=== PATIENT | female | born 1990 | race Caucasian/White ===

== ENCOUNTER 2017-10-26 16:25 | Emergency (ER) | payer OTHER ==
[~2017-10-26] VITALS: Ht 162.6 cm; Wt 75.0 kg
[~2017-10-26 16:25] MED LIST: CEPH500C3 PO
--- NOTE | 2017-10-26 16:53 | PD ---
HPI Chief Complaint: Cardiac Complaint Time Seen by Provider: 16:53 Travel History International Travel<30 days: No Contact w/Intl Traveler<30days: No Traveled to known affect area: No History of Present Illness HPI 27-year-old female came to the emergency room with vague complains of dizziness , feeling weird and cough for past 1-2 months. Patient has not been able to describe her symptoms very well but continues going round and round on dizziness and "I don't know but something is wrong". Vital signs are stable. Patient was afebrile. She seems anxious and has been continuously trying to clear her throat was she is talking. PFSH Past Medical History Narrative Medical List of her past medical, surgical, social and family history is reviewed from the nursing note. Blood Disorders: No Anxiety: No Depression: No Heart Rhythm Problems: Yes ("HEART MURMUR") Cancer: No Cardiovascular Problems: No (ARRYTHMIA) Diminished Hearing: No Endocrine: No Genitourinary: No Immune Disorder: No Musculoskeletal: No Neurologic: No Psychiatric: Yes (PTSD) Reproductive: No Respiratory: Yes (:"heart murmur") Immunizations Current: Yes : 4 Para: 2 Miscarriage: 1 : 0 Past Surgical History Oral Surgery: Yes Social History Alcohol Use: No Tobacco Use: No Substance Use: No Allergies-Medications (Allergen,Severity, Reaction): Coded Allergies: sulfamethoxazole (Verified Allergy, Severe, 10/26/17) trimethoprim (Verified Allergy, Severe, 10/26/17) Comments List of her allergies reviewed from the nursing note. Reported Meds & Prescriptions Reported Meds & Active Scripts Active Reported Wellbutrin Xl 24 HR (Bupropion HCl) 150 Mg Tab 150 Mg PO DAILY Narrative Medication List of her home medications reviewed from the nursing note. Review of Systems Except as stated in HPI: all other systems reviewed are Neg Psychiatric: Positive: Anxiety Physical Exam Narrative GENERAL: Awake, alert, anxious SKIN: Focused skin assessment warm/dry. HEAD: Atraumatic. Normocephalic. EYES: Pupils equal and round. No scleral icterus. No injection or drainage. ENT: No nasal bleeding or discharge. Mucous membranes pink and moist. Throat looks clear with no erythema or exudates NECK: Trachea midline. No JVD. CARDIOVASCULAR: Regular rate and rhythm. No murmur appreciated. RESPIRATORY: No accessory muscle use. Clear to auscultation. Breath sounds equal bilaterally. GASTROINTESTINAL: Abdomen soft, non-tender, nondistended. Hepatic and splenic margins not palpable. MUSCULOSKELETAL: No obvious deformities. No clubbing. No cyanosis. No edema. NEUROLOGICAL: Awake and alert. No obvious cranial nerve deficits. Motor grossly within normal limits. Normal speech. PSYCHIATRIC: Appropriate mood and affect; insight and judgment normal. Data Data Last Documented VS Orders Orders Complete Blood Count With Diff (10/26/17 17:11) Basic Metabolic Panel (Bmp) (10/26/17 17:11) Urinalysis - C+S If Indicated (10/26/17 17:11) Ed Urine Pregnancytest Poc (10/26/17 17:11) Sodium Chlor 0.9% 1000 Ml Inj (Ns 1000 M (10/26/17 17:15) Orthostatic Vital Signs (10/26/17 17:11) Electrocardiogram (10/26/17 ) Ed Discharge Order (10/26/17 18:28) Labs Laboratory Tests Test 10/26/17 17:46 10/26/17 17:50 Urine Collection Type CLEAN CATCH Urine Color STRAW Urine Turbidity SLIGHT Urine pH 7.5 Urine Specific [place] 1.017 Urine Protein NEG mg/dL Urine Glucose (UA) NEG mg/dL Urine Ketones NEG mg/dL Urine Occult Blood NEG Urine Nitrite NEG Urine Bilirubin NEG Urine Leukocyte Esterase NEG Urine WBC 0-2 /hpf Urine Squamous Epithelial Cells 0-5 /hpf Urine Amorphous Sediment FEW Urine Bacteria OCC /hpf Microscopic Urinalysis Comment CULT NOT INDICATED Urine Collection Time 1745 White Blood Count 9.9 TH/MM3 Red Blood Count 4.68 MIL/MM3 Hemoglobin 12.7 GM/DL Hematocrit 38.7 % Mean Corpuscular Volume 82.7 FL Mean Corpuscular Hemoglobin 27.1 PG Mean Corpuscular Hemoglobin Concent 32.8 % Red Cell Distribution Width 12.7 % Platelet Count 335 TH/MM3 Mean Platelet Volume 8.9 FL Neutrophils (%) (Auto) 66.6 % Lymphocytes (%) (Auto) 28.3 % Monocytes (%) (Auto) 3.4 % Eosinophils (%) (Auto) 1.2 % Basophils (%) (Auto) 0.5 % Neutrophils # (Auto) 6.7 TH/MM3 Lymphocytes # (Auto) 2.8 TH/MM3 Monocytes # (Auto) 0.3 TH/MM3 Eosinophils # (Auto) 0.1 TH/MM3 Basophils # (Auto) 0.0 TH/MM3 CBC Comment AUTO DIFF Differential Comment AUTO DIFF CONFIRMED Blood Urea Nitrogen 15 MG/DL Creatinine 0.84 MG/DL Random Glucose 96 MG/DL Calcium Level 8.9 MG/DL Sodium Level 140 MEQ/L Potassium Level 3.8 MEQ/L Chloride Level 107 MEQ/L Carbon Dioxide Level 24.8 MEQ/L Anion Gap 8 MEQ/L Estimat Glomerular Filtration Rate 80 ML/MIN MDM Medical Decision Making Medical Screen Exam Complete: Yes Emergency Medical Condition: Yes Medical Record Reviewed: Yes Interpretation(s) Twelve-lead EKG was reviewed by me. Normal sinus rhythm, normal axis, nonspecific ST-T wave changes. Heart rate of 73 bpm. Differential Diagnosis Anxiety, dehydration, substance induced anxiety Narrative Course 5:54 PM there were orthostatic vital signs done which were within normal limits. Awaiting for blood test results. 6:29 PM blood test results of back and within normal limit. At this point her symptoms correlate more with anxiety. I am comfortable to discharge her home. Procedures EKG Prior to Arrival: No Diagnosis Primary Impression: Anxiety Referrals: Primary Care Physician Additional Instructions: Please follow-up with your primary care/psychiatrist and discuss his symptoms. Return to the ER if condition worsens or any other new concerns. Disposition: 01 DISCHARGE HOME Condition: Stable Brendon Angel MD Oct 26, 2017 16:53
[2017-10-26 17:03] VITALS: BP 127/54; PULSE 77; RESP 20; TEMP 98.5; O2SAT 100
[2017-10-26] MEDS ORDERED: BUPR150XL PO (17:03)
[2017-10-26] MEDS ORDERED: SODIUM CHLOR 0.9% 1000 ML INJ 1,000 ML IV ONE (17:15)
[2017-10-26 17:18] VITALS: BP_SYST 135; BP_SYST 140; BP_SYST 158; BP_DIAS 61; BP_DIAS 68; BP_DIAS 83; RESP 18; RESP 20
[2017-10-26 18:02] LABS: AUTOMATED NEUTROPHIL # 6.7 TH/MM3 (1.8-7.7); BASOPHIL % 0.5 % (0.0-2.0); EOSINOPHIL # 0.1 TH/MM3 (0-0.4); EOSINOPHIL % 1.2 % (0.0-4.0); HEMATOCRIT 38.7 % (35.0-46.0); HEMOGLOBIN 12.7 GM/DL (11.6-15.3); LYMPH % 28.3 % (9.0-44.0); LYMPHOCYTE # 2.8 TH/MM3 (1.0-4.8); MEAN CELL VOLUME 82.7 FL (80.0-100.0); MEAN CORPUSCULAR HEMOGLOBIN 27.1 PG (27.0-34.0); MEAN CORPUSCULAR HGB CONC 32.8 % (32.0-36.0); MEAN PLATELET VOLUME 8.9 FL (7.0-11.0); MONO % 3.4 % (0.0-8.0); MONOCYTE # 0.3 TH/MM3 (0-0.9); NEUT % 66.6 % (16.0-70.0); PLATELET COUNT 335 TH/MM3 (150-450); RED BLOOD COUNT 4.68 MIL/MM3 (4.00-5.30); RED CELL DISTRIBUTION WIDTH 12.7 % (11.6-17.2); WHITE BLOOD COUNT 9.9 TH/MM3 (4.0-11.0)
[2017-10-26 18:05] LABS: BILIRUBIN, URINE NEG (NEG); BLOOD, URINE NEG (NEG); GLUCOSE,URINE NEG (NEG); KETONE, URINE NEG (NEG); NITRITE,URINE NEG (NEG); PH, URINE 7.5 (5.0-8.5); URINE LEUKOCYTE ESTERASE NEG (NEG)
[2017-10-26 18:13] LABS: BICARBONATE 24.8 MEQ/L (21.0-32.0); CALCIUM 8.9 MG/DL (8.5-10.1)
[2017-10-26 18:14] LABS: URINE COLOR STRAW (YELLW/STRAW)
[2017-10-26 18:15] VITALS: BP 106/78; PULSE 71; RESP 16; O2SAT 97
[2017-10-26 18:15] LABS: AMORPHOUS SEDIMENT, URINE FEW; BACTERIA, URINE OCC /hpf; SQUAMOUS EPITHELIAL CELL URINE 0-5 /hpf (0-5); WBC, URINE 0-2 /hpf (0-5)
[2017-10-26 18:17] LABS: CREATININE 0.84 MG/DL (0.50-1.00)
--- NOTE | 2017-10-27 17:40 | EKG ---
Date Performed: 10/26/2017 Time Performed: 18:12:13 PTAGE: 27 years EKG: Sinus rhythm WITH SINUS ARRHYTHMIA LOW QRS VOLTAGE IN PRECORDIAL LEADS BORDERLINE ECG PREVIOUS TRACING : 11/02/2011 01.24 Compared to prior tracing no significant change DOCTOR: Sondra Lott Interpretating Date/Time 10/27/2017 17:38:21
== END 2017-10-26 19:01 | disposition home or self-care (01) ==
LOC: PHED 16:25
DX: F41.9 Anxiety disorder, unspecified (principal); R42 Dizziness and giddiness; R05 Cough; R94.31 Abnormal electrocardiogram [ECG] [EKG]; Z86.79 Personal history of other diseases of the circulatory system; Z86.59 Personal history of other mental and behavioral disorders
CPT/HCPCS: 80048; 81001; 84703; 85025; 93005; 99284; J7030

== ENCOUNTER → 2018-02-24 | Outpatient (CLI) | payer OTHER ==
[~2018-02-24] MED LIST changes: +BUPR150XL PO; -CEPH500C3 PO
--- NOTE | 2018-02-25 14:23 | EKG ---
Date Performed: 02/24/2018 Time Performed: 13:50:30 PTAGE: 27 years EKG: Sinus arrhythmia. Possible anterior infarct - age undetermined Low QRS voltages in precordi al leads Abnormal ECG Since the PREVIOUS TRACING , no significant change noted PREVIOUS TRACIN10/26/2017 18.12 DOCTOR: Olivia Sharp Interpretating Date/Time 02/25/2018 14:18:57
== END ==
LOC: HCAV 13:22
PROVIDERS: ATTEND Psychiatry & Neurology Child & Adolescent Psychiatry
DX: F41.1 Generalized anxiety disorder (principal); F33.1 Major depressive disorder, recurrent, moderate; F43.12 Post-traumatic stress disorder, chronic; R94.31 Abnormal electrocardiogram [ECG] [EKG]
CPT/HCPCS: 93005